=== PATIENT | female | born 1980 | race Caucasian/White ===

== ENCOUNTER 2017-05-27 14:43 | Emergency (ER) | payer MEDICAID ==
[~2017-05-27] VITALS: Ht 165.1 cm; Wt 54.0 kg
[2017-05-27 14:56] VITALS: Ht 165.1 cm; Wt 54.0 kg
--- NOTE | 2017-05-27 16:09 | ERD ---
ER Documentation Chief Complaint Date/Time DATE: 05/27/17 TIME: 15:57 Chief Complaint LEFT LEG PAIN HPI 37 year old female comes in with posterior left leg pain behind her knee with swelling after a left inversion ankle injury from 6 days ago. Patient complains of achy, moderate, localized pain at the distal left femur region behind the knee. No fever or chills. ROS All systems reviewed and are negative except as per history of present illness. Medications Home Meds Active Scripts Ibuprofen* (Motrin*) 600 Mg Tab, 600 MG PO Q6, #30 TAB Prov:FACUNDO TIJERINA PA-C 05/27/17 PMhx/Soc Medical and Surgical Hx: pt denies Medical Hx, pt denies Surgical Hx Hx Alcohol Use: No Hx Substance Use: No Hx Tobacco Use: No Physical Exam Vitals Vital Signs Date Time Temp Pulse Resp B/P Pulse Ox O2 Delivery O2 Flow Rate FiO2 05/27/17 14:56 97.7 64 19 99/59 97 Physical Exam General: Well-developed, well-nourished. The patient appears in no acute distress. HEENT: Head is normocephalic, atraumatic. No scleral icterus. Neck: Supple. Nontender. Lungs: Clear to auscultation. Normal air movement. Heart: Regular rate and rhythm. S1 and S2 are normal. No murmurs, gallops, or rubs. Abdomen: Nondistended. Extremities: Left posterior proximal knee has swelling, no fluctuance, full ROM of left knee, no joint line tenderness, no bony deformities. Neurologic: Alert and oriented 3. No focal deficits. Normal speech and gait. Skin: Normal turgor. No rash or lesions. Results 24 hrs DIAGNOSTIC IMAGING REPORT Patient: YAIMA HESTER : 1980 Age: 37 Sex: F MR #: [id number] [facility] #: [id number] DOS: 05/27/17 1547 Ordering MD: FACUNDO TIJERINA PA-C Location: [facility] Room/Bed: PROCEDURE: Ultrasound of the posterior left knee. CLINICAL INDICATION: Posterior left knee swelling and pain. TECHNIQUE: Targeted ultrasound to the popliteal fossa of the left knee is performed COMPARISON: None FINDINGS: Ultrasound of the left popliteal fossa shows no evidence of mass, fluid collection or other sonographic abnormality. The popliteal artery and vein appear normal in caliber and course. IMPRESSION: Unremarkable ultrasound of the left popliteal fossa. RPTAT: GG .Zurdo Clark MD, Date Time Electronically viewed and signed by .Zurdo Clark MD, MD on 05/27/2017 16:11 .L/ CC: FACUNDO TIJERINA PA-C Procedures/MDM 37 year old femlae comes in with left knee pain, most consistent with a knee sprain. Ultrasound was done, as there is swelling behind the knee, which was unremarkable. There is no evidence of an abscess, signs of a knee effusion, intra-articular infection, osteomyelitis. Departure Diagnosis: Primary Impression: Knee sprain Condition: Good FACUNDO TIJERINA PA-C May 27, 2017 16:07
--- NOTE | 2017-05-27 16:11 | RADRPT ---
PROCEDURE: Ultrasound of the posterior left knee. CLINICAL INDICATION: Posterior left knee swelling and pain. TECHNIQUE: Targeted ultrasound to the popliteal fossa of the left knee is performed COMPARISON: None FINDINGS: Ultrasound of the left popliteal fossa shows no evidence of mass, fluid collection or other sonograp hic abnormality. The popliteal artery and vein appear normal in caliber and course. IMPRESSION: Unremarkable ultrasound of the left popliteal fossa. RPTAT: GG .Zurdo Clark MD, MD Date Time Electronically viewed and signed by .Zurdo Clark MD, on 05/27/2017 16:11 .L/
[2017-05-27] MEDS ORDERED: IBUP-1542 PO (16:16)
== END 2017-05-27 16:40 | disposition home or self-care (01) ==
LOC: FTE 14:43
DX: S83.92XA Sprain of unspecified site of left knee, initial encounter (principal); X50.9XXA Other and unspecified overexertion or strenuous movements or postures, initial encounter; Y92.9 Unspecified place or not applicable
CPT/HCPCS: 76536; Z7502